=== PATIENT | female | born 1965 | race Two or more races ===

== ENCOUNTER → 2024-01-03 | Outpatient (CLI) | payer BC, SELFPAY ==
[2024-01-03 10:16] LABS: Collection Type, Urine Clean Catch
[2024-01-03 10:32] LABS: Bilirubin,Urine Negative (Negative); Blood,Urine 2+ (Negative); Clarity,Urine Clear (Clear/Hazy); Color,Urine Yellow (Lt Yel-Yel); Glucose, Urine Negative (Negative); Ketones,Urine Negative (Negative); Leukocyte Esterase,Urine Positive (Negative); Nitrite,Urine Negative (Negative); Protein,Urine Trace (Neg - Trace); RBC,Urine 33 /hpf (0-3); Specific Gravity,Urine 1.027 (1.001-1.035); Squamous Epithelial Cell,Urine 4 /hpf (0-5); Urobilinogen,Urine Negative mg/dL (0.0-1.0); WBC,Urine 9 /hpf (0-5)
[2024-01-03 10:41] LABS: Glucose Estimated Average 111 mg/dL (80-131); Hemoglobin A1C 5.5 % Hgb (4.8-6.0)
[2024-01-03 10:45] LABS: Cardiac Risk Estimate 4.2 RATIO (3.7-5.6); Cholesterol 283 mg/dL (132-200); HDL Cholesterol 68 mg/dL (40-60); LDL Cholesterol,Calculated 184 mg/dL (0-130); Triglycerides 157 mg/dL (30-150)
== END | disposition home or self-care (01) ==
LOC: COPL 09:44
PROVIDERS: PCP Family Medicine; Referring Provider Family Medicine; Visit Provider Family Medicine
DX: I10 Essential (primary) hypertension (principal)
CPT/HCPCS: 36415; 80061; 81001; 83036

== ENCOUNTER → 2024-09-10 | Outpatient (CLI) | payer MEDICAID, SELFPAY ==
--- NOTE | 2024-09-10 09:30 | XR_ITS ---
Examination: Esophagram. Fluoroscopy. Upright PA chest single view. Upright soft tissue lateral neck single view 20 spot fluoroscopic films of the esophagus Date and time: September 02, 2024 1114 hours INDICATIONS: Difficulty swallowing several months TECHNIQUE AND FINDINGS: Upright PA chest single view demonstrates normal heart size, lungs are clear Soft tissue lateral neck single view demonstrates normal epiglottis Patient swallowed thin barium with 25 fluoroscopic films of the esophagus obtained, fluoroscopy 24 seconds Primary peristaltic esophageal waves Secondary and tertiary esophageal contractions. Moderate intermittent gastroesophageal reflux Small sliding esophageal hernia No stricture at the gastroesophageal junction IMPRESSION: Severe esophageal dysmotility Moderate intermittent gastroesophageal reflux
== END | disposition home or self-care (01) ==
LOC: CDIM 09:20
PROVIDERS: PCP Family Medicine; Referring Provider Physician Assistant; Visit Provider Physician Assistant
DX: K21.9 Gastro-esophageal reflux disease without esophagitis (principal); R13.19 Other dysphagia
CPT/HCPCS: 74220; A4649

== ENCOUNTER → 2024-11-14 | Outpatient (CLI) | payer MEDICAID, SELFPAY ==
--- NOTE | 2024-11-14 14:45 | XR_ITS ---
Examination: Screening digital mammography, bilateral Computer aided detection 3-D breast Tomosynthesis, bilateral Date and time of exam: November 14, 2024, 1428 hours, compared to mammograms dating to June 08, 2017 Indication: Screening Technique: Nonmagnified MLO, CC views of the breasts to been obtained, reconstructed from 3-D Tomosynthesis images. R2 computer aided detection program utilized for evaluation of suspicious masses and/or abnormal calcifications. 3-D Tomosynthesis images obtained. Findings: The breasts are heterogeneously dense, which may obscure small masses 5 mm nodule 12:00 position right breast anterior depth Benign calcifications Impression: BI-RADS Category 0: Incomplete: Need additional imaging evaluation Recommend follow-up spot tomographic views of 5 mm nodule 12:00 position right breast as well as right breast sonography to complete the workup
== END | disposition home or self-care (01) ==
LOC: CDIM 14:14
PROVIDERS: PCP Physician Assistant; Referring Provider Physician Assistant; Visit Provider Physician Assistant
DX: Z12.31 Encounter for screening mammogram for malignant neoplasm of breast (principal); N63.15 Unspecified lump in the right breast, overlapping quadrants; R92.1 Mammographic calcification found on diagnostic imaging of breast; R92.8 Other abnormal and inconclusive findings on diagnostic imaging of breast
CPT/HCPCS: 77063; 77067

== ENCOUNTER → 2024-12-03 | Outpatient (CLI) | payer MEDICAID, SELFPAY ==
--- NOTE | 2024-12-03 | XR_ITS ---
Examination: Diagnostic digital mammography, unilateral, right Computer aided detection 3-D breast Tomosynthesis, unilateral Date and time of exam: December 03, 2024, 1412 hours INDICATIONS: Mammogram November 14, 2024 5 mm nodule 12 o'clock position right breast Technique: Nonmagnified MLO, CC views of the right breast have been obtained, reconstructed from 3-D Tomosynthesis images. R2 computer aided detection program utilized for evaluation of suspicious masses and/or abnormal calcifications. 3-D Tomosynthesis images obtained. Findings: The breast is heterogeneously dense, which may obscure small masses Focal asymmetry remains, 6 mm, upper right breast MLO view Impression: BI-RADS Category 3: Probably benign findings 1 additional continued 6-month right mammogram follow-up is needed to document stability of focal asymmetry upper right breast on the current MLO view
--- NOTE | 2024-12-03 14:04 | XR_ITS ---
Examination: Breast ultrasound, unilateral, right complete Date and time of exam: December 03, 2024, 1417 hours INDICATIONS: Mammogram November 14, 2024 5 mm nodule 12 o'clock position right breast Technique: Real-time sin scale ultrasonographic imaging performed right breast including all 4 quadrants as well as nipple retroareolar and axillary region. Findings: No cystic or solid mass Dilated ducts in the right breast IMPRESSION: BI-RADS Category 2: Benign findings
== END | disposition home or self-care (01) ==
LOC: COPL 13:48
PROVIDERS: PCP Physician Assistant; Referring Provider Physician Assistant; Visit Provider Radiology Diagnostic Radiology
DX: R92.331 Mammographic heterogeneous density, right breast (principal); N64.89 Other specified disorders of breast
CPT/HCPCS: 76641; 77061; 77065; G0279

== ENCOUNTER → 2025-01-03 | Outpatient (CLI) | payer MEDICAID, SELFPAY ==
--- NOTE | 2025-01-03 | XR_ITS ---
Examination: Abdomen AP single view Technique: AP portable supine abdomen, single view Exam date and time: January 03, 2025, 1120 hours INDICATIONS: Abdominal pain beginning 10 years ago. FINDINGS: Moderate stool throughout the colon No obstruction No free air No renal or ureteral calculi. Osseous rectors are intact IMPRESSION: No renal or ureteral calculi
== END | disposition home or self-care (01) ==
LOC: CDIM 11:04
PROVIDERS: PCP Physician Assistant; Referring Provider Surgery; Visit Provider Surgery
DX: R10.9 Unspecified abdominal pain (principal)
CPT/HCPCS: 74018